=== PATIENT | male | born 1945 | race Caucasian/White ===

== ENCOUNTER 2019-08-09 09:50 | Day surgery (SDC) | payer OTHER ==
[~2019-08-09] VITALS: Ht 172.7 cm; Wt 94.4 kg
[~2019-08-09 09:50] MED LIST: ATEN25 PO; ATEN50 PO; B Complex-Foli1 EACH PO; DIAZ2 PO; Dyazide 37.5-21 EACH PO; FISH OIL 1,0001 EAC2 PO; Flonase 0.05% N16 GM; HYDR1TAB94 PO; LISI20 PO; Magnesium500 M1 PO; Multiple Vitam1 EACH PO; NITR100 PO; POTASSIUM99 MG PO; Prinivil10 MG PO; TOPROL XL50 MG PO
--- NOTE | 2019-08-09 10:30 | NUR ---
08/09/19 1030 Maria Del Rosario Garrett 1 TRY VALVE HAND RIGHT LEFT HAND GOOD
== END 2019-08-09 11:55 | disposition home or self-care (01) ==
LOC: ORSCSDS 09:50
PROVIDERS: Surgery
PROC: 0DJD8ZZ Inspection of Lower Intestinal Tract, Via Natural or Artificial Opening Endoscopic (ICD-10-PCS; principal; 2019-08-09 11:00)
DX: Z12.11 Encounter for screening for malignant neoplasm of colon (principal); G47.33 Obstructive sleep apnea (adult) (pediatric); I10 Essential (primary) hypertension; K21.9 Gastro-esophageal reflux disease without esophagitis; R73.03 Prediabetes; Z79.899 Other long term (current) drug therapy
CPT/HCPCS: J2704; J7120